=== PATIENT | male | born 1985 | race Caucasian/White ===

== ENCOUNTER 2019-04-22 05:59 | Day surgery (SDC) | payer BC, OTHER ==
[2019-04-22] MEDS ORDERED: Lactated Ringers 1,000 ML IV SCH (06:30)
[2019-04-22] MEDS ORDERED: DIPRIVAN 200 MG/20 ML IV ONE ×2 (07:10→07:35)
[2019-04-22] MEDS ORDERED: Ketamine HCl 50 MG/ML ONE (07:10)
[2019-04-22 08:11] VITALS: O2SAT 97
[2019-04-22 08:36] VITALS: BP 132/71; PULSE 69
--- NOTE | 2019-04-22 11:21 | OP ---
SURGERY DATE/TIME: 04/22/2019 0726 PREOPERATIVE DIAGNOSIS: Dysphagia. POSTOPERATIVE DIAGNOSIS: Reactive-type gastropathy otherwise normal exam. PROCEDURE: Esophagogastroduodenoscopy with cold forceps biopsy of gastric antrum. SURGEON: Dr. Bond. ANESTHESIA: Medications were given by the anesthesia department. BRIEF HISTORY: The patient is a 33 year old white male who presents now for endoscopic evaluation due to the complaints of food sticking in his upper neck area and in the upper part of his mid chest area as well. He reports that rice and meat seems to be the worst problem with getting down. Liquids less so. The patient is felt the need to have endoscopic evaluation. He was described the risks of the procedure including the risk of perforation, phlebitis, untoward reaction to medication, bleeding and missed lesions. The patient verbalized his understanding and desired to have the procedure performed. DESCRIPTION OF PROCEDURE: The patient was given the medications by the anesthesia department. He had continuous pulse oximetry, ECG monitoring, intermittent blood pressure monitoring and tidal CO2 monitoring during the examination. He was placed in the left lateral decubitus position. A bite block was placed and the flexible Olympus gastroscope was used to intubate the oropharynx. A view of the larynx was obtained and was normal. The scope easily introduced in the esophagus which was normal throughout its length. Specifically no stricture was noted. The stomach was entered where normal gastric rugal folds were seen and these distended nicely with insufflation of air. There did appear to be reactive-type gastropathy noted particularly in the body and the antrum of the stomach. Pylorus encountered and intubated. Duodenum inspected and found to be essentially normal. The scope is withdrawn towards the stomach. Again, a retroflex view was obtained of the lesser curvature, fundus and cardia regions of the stomach and these appeared to be essentially normal. No hiatal hernia was noted. The scope was then redirected towards the gastric antrum and biopsies were obtained to rule out the presence of Helicobacter pylori-type organisms to confirm the presence of reactive-type gastropathy. The scope was then removed from the patient who tolerated the procedure well and was sent back to outpatient recovery in good condition.
== END 2019-04-22 08:47 | disposition home or self-care (01) ==
LOC: SDC 05:59
PROVIDERS: ATTEND Family Medicine
DX: K31.9 Disease of stomach and duodenum, unspecified (principal); R13.10 Dysphagia, unspecified
CPT/HCPCS: J2704